=== PATIENT | male | born 1955 | race Two or more races ===

== ENCOUNTER 2020-09-21 14:48 | Outpatient (CLI) | payer OTHER | END 2020-09-21 15:55 | disposition home or self-care (01) | LOC: PPH VACUNA 14:48 | PROVIDERS: ATTEND Emergency Medicine Pediatric Emergency Medicine | DX: Z23 Encounter for immunization (principal) ==

== ENCOUNTER 2021-06-06 11:00 | Outpatient (CLI) | payer OTHER | END 2021-06-06 11:05 | disposition home or self-care (01) | LOC: PPH VACUNA 11:00 | PROVIDERS: ATTEND Emergency Medicine Pediatric Emergency Medicine | DX: Z23 Encounter for immunization (principal) ==